=== PATIENT | male | born 1975 | race Caucasian/White ===

== ENCOUNTER 2016-06-28 07:15 | Emergency (ER) | payer OTHER ==
[~2016-06-28] VITALS: Ht 193 cm; Wt 144.0 kg
[2016-06-28] MEDS ORDERED: IBUPROFEN 200 MG (MOTRIN) TAB PO ONE (08:40)
[2016-06-28] MEDS ORDERED: ACETAMINOPHEN 500 MG TAB (TYLENOL) PO ONE (08:40)
--- NOTE | 2016-06-28 09:00 | NUR ---
The largest sling available in stock does not reach around patient's back. Patient given prescription for a sling to obtain at the pharmacy.
[2016-06-28 09:34] VITALS: BP 140/82
== END 2016-06-28 09:15 | disposition home or self-care (01) ==
LOC: ED 07:18
DX: G89.11 Acute pain due to trauma (principal); M79.641 Pain in right hand; M79.631 Pain in right forearm; M79.601 Pain in right arm; W20.8XXA Other cause of strike by thrown, projected or falling object, initial encounter; Y93.89 Activity, other specified; Y92.63 Factory as the place of occurrence of the external cause; Y99.0 Civilian activity done for income or pay
CPT/HCPCS: 73060; 73090; 73130; 99283

== ENCOUNTER → 2016-06-28 | Outpatient (REF) ==
[~2016-06-28] VITALS: Ht 193 cm; Wt 133.8 kg
[2016-06-28 09:09] VITALS: BP 140/82
== END ==
LOC: EUOP 07:24
PROVIDERS: ATTEND Emergency Medicine
DX: Z02.89 Encounter for other administrative examinations (principal); Z02.83 Encounter for blood-alcohol and blood-drug test